=== PATIENT | female | born 1990 | race Caucasian/White ===

== ENCOUNTER 2025-08-09 12:21 | Outpatient (REF) | payer BC, SELFPAY ==
--- OUTSIDE RECORDS SUMMARY | 2025-08-09 14:58 | XMS_ITS | Clinical Summary ---
Author Organization [facility] Address [address] [place] [id number] Phone Care Team Providers Care Program Director Substance Abuse Name Role Phone Cyrus Loaiza Primary Care Provider [phone] Allergies No known active allergies Medications polyethylene glycol (MIRALAX) 17 gram packet Take 17 g by mouth daily. It is safe to increase this med from 1-4 times daily to assure that you have one soft bowel movement daily. 100 each 2 02/03/2019 Active psyllium (KONSYL) Pack Take 1 packet by mouth 2 (two) times a day. 60 packet 2 02/03/2019 Active Social History Tobacco Use Types Packs/Day Years Used Date Smoking Tobacco: Never Smokeless Tobacco: Never Alcohol Use Standard Drinks/Week Comments Yes 0 (1 standard drink = 0.6 oz pur e alcohol) once in a blue funez Education Answer Date Recorded Are you interested in more education? Not on franc e 03/07/2023 Are you concerned about learning? Not on file 03/07/2023 No 03/07/2023 No 03/07/2023 Digital Access Answer Date Recorded No 03/20/2023 No 03/20/2023 No 03/20/2023 Reliable internet access at home? Not on file 03/20/2023 Device with a working camera? Not on file Comments Unknown Sex and Gender Information Value Date Recorded Sex Assigned at Female 02/03/2019 6:37 PM EDT Legal Sex Female 6:49 PM EST Gender Identity Female 02/03/2019 6:37 PM EDT Sexual Orientation Straight 02/03/2019 6: 37 PM EDT Last Filed Vital Signs Vital Sign Reading Time Taken Comments Blood Pressure 118/72 02/03/2019 7:56 PM EDT Pulse 68 02/03/2019 7:56 PM EDT Temperature 36.7 C (98.1 F) 02/03/2019 7:56 PM EDT Respiratory Rate 16 02/03/2019 7:56 PM EDT Oxygen Saturation 100% 02/03/2019 7:56 PM EDT Inhaled Oxygen Concentration - - Weight 61.2 kg (135 lb) 02/03/2019 6:35 PM EDT Height 157.5 cm (5' 2 ) 02/03/2019 6:35 PM EDT Body Mass Index 24.69 02/03/2019 6:35 PM EDT Plan of Treatment Health Maintenance Due Date Last Done Comments Adult Td,Tdap Booster 1990 DEPRESSION SCREENING 2002 HEPATITIS C SCREENING 2008 HIV ONE-TIME SCREENING (18-6 5 YEARS) 2008 PAP SMEAR 2011 INFLUENZA VACCINE (#1) 2025 7, 09/01/2016 COVID-19 VACCINE (3 - 2024-2 6 season) 2025 07/22/2021, 06/24/2021 HEPATITIS A VACCINES Aged Out No long er eligible based on patient's age to complete this topic HIB VACCINES Aged Out No longer eligi ble based on patient's age to complete this topic MENINGOCOCCAL VACCINES (ACWY) Aged Out No longer eligible based on patient's age to complete this topic MENINGOCOCCAL VACCINES (B) Aged Out N o longer eligible based on patient's age to complete this topic PNEUMOCOCCAL VACCINES (0-49 years) Aged Out No longer eligible b ased on patient's age to complete this topic Medical Devices Not on file Care Teams Program Director Substance Abuse Relationship Specialty Start Date End Date Cyrus Loaiza DO PCP - General Internal Medicine 02/03/19 Additional Source Comments The information contained in this document represents components of the legal health record. It is not the complete legal health record.[facility]
--- OUTSIDE RECORDS SUMMARY | 2025-08-09 14:58 | XMS_ITS | Encounter Summary ---
Author Organization [facility] Address [address] [place] [phone] Phone Care Team Providers Care Core Shaper Top Name Role Phone Cyrus Loaiza DO Primary Care Provider [phone] Encounter Details Date Type Department Care Team (Latest Contact Info) Description 01/28/2021 Transcribe Orders Virtual Department [address] [place] [address] Shefali Gruber PA [address] [place] [address] [place] [address] Chest pain, unspecified type (Primary Dx) Social History Tobacco Use Types Packs/Day Years Used Date Smoking Tobacco: Never Smokeless Tobacco: Never Alcohol Use Standard Drinks/Week Comments Yes 0 (1 standard drink = 0.6 oz pur e alcohol) once in a blue funez Comments Unknown Sex and Gender Information Value Date Recorded Sex Assigned at Female 02/03/2019 6:37 PM EDT Legal Sex Female 6:49 PM EST Gender Identity Female 02/03/2019 6:37 PM EDT Sexual Orientation Straight 02/03/2019 6: 37 PM EDT documented as of this encounter Plan of Treatment Not on file documented as of this encounter Visit Diagnoses Diagnosis Chest pain, unspecified type- Primary documented in this encounter Care Teams Core Shaper Top Relationship Specialty Start Date End Date Cyrus Loaiza DO PCP - General Internal Medicine 02/03/19 documented as of this encounter Additional Source Comments The information contained in this document represents components of the legal health record. It is not the complete legal health record.[facility]
--- OUTSIDE RECORDS SUMMARY | 2025-08-09 14:58 | XMS_ITS | Encounter Summary ---
Author Organization [facility] Address [address] [place] [phone] Phone Care Team Providers Care Swing Driver Name Role Phone Cyrus Loaiza DO Unavailable Cyrus Loaiza DO Primary Care Provider Encounter Details Date Type Department Care Team (Latest Contact Info) Description 02/20/2019 Transcribe Orders [facility] [address] [place] [address] Shefali Billy, SPECIAL PROCEDURE TECHNOLOGIST [address] [place] [address] [email or web address] Rectal bleeding (Primary Dx); Constipation, unspecified constipation type; Bloating Social History Tobacco Use Types Packs/Day Years [...] on file documented as of this encounter Results * Comprehensive metabolic panel (02/20/2019 1:39 PM EDT) SODIUM 140 133 - 146 mmol/L [facility] POTASSIUM 4.1 3.3 - 5.1 mmol/L [facility] CHLORIDE 102 96 - 108 mmol/L [facility] CO2 27 21 - 35 mmol/L [facility] BUN 11 6 - 19 mg/dL [facility] CREATININE 0.80 0.5 - 1.5 mg/dL [facility] GLUCOSE 88 70 - 99 mg/dL [facility] ALBUMIN 4.8 3.9 - 4.8 g/dL [facility] TOTAL PROTEIN 8.0 6.5 - 8.0 g/dL [facility] CALCIUM 9.7 8.4 - 10.3 mg/dL [facility] ALKALINE PHOSPHATASE 50 39 - 117 U/L [facility] TOTAL BILIRUBIN 0.4 0.0 - 1.2 mg/dL [facility] AST 18 0 - 37 U/L [facility] ALT <5 0 - 40 U/L [facility] GLOBULIN 3.2 1 - 4.8 g/dL [facility] EGFR 100 >59 mL/min/1.7 3m2 [facility] Comment:If patient is black, multiply result by 1.159. Estimated glomerular filtration rate calculated using the CKD-EPI equation. ANION GAP 15 10 - 20 mmol/L [facility] Blood 02/20/2019 1:39 PM EDT 02/20/2019 1:43 PM EDT Shefali Billy [facility] BLOOD ORDERABLES Final Result Performing Organization Address City/State/[facility] Co de Phone Number [facility] [address] [place], [place] [phone] * (ABNORMAL) CBC (02/20/2019 1:39 PM EDT) WBC 6.24 3.40 - 11.20 K/uL [facility] RBC 4.74 3.80 - 4.80 M/uL [facility] HGB 12.4 12.0 - 15.0 g/dL [facility] HCT 39.6 36.0 - 46.0 % [facility] PLT 238 130 - 400 K/uL [facility] MCV 83.5 79.0 - 98.0 fL [facility] MCH 26.2(L) 27.0 - 34.8 pg [facility] MCHC 31.3(L) 31.5 - 36.0 g/dL [facility] RDW 14.9(H) 10.8 - 14.6 % [facility] MPV 10.5 9.4 - 12.4 fl [facility] NRBC 0.00 0.00 /100 WBCs [facility] ABSOLUTE NRBC 0.00 0.00 K/uL [facility] Blood 02/20/2019 1:39 PM EDT 02/20/2019 1:43 PM EDT Shefali Billy [facility] BLOOD ORDERABLES Final Result Performing Organization Address [facility]/ZIP Co de Phone Number [address] [address] * Immunoglobulin A (02/20/2019 1:39 PM EDT) IgA 208 70 - 400 mg/dL [facility] Blood 02/20/2019 1:39 PM EDT 02/20/2019 1:43 PM EDT [facility] BLOOD ORDERABLES Final Result Performing Organization Address [facility] Co de Phone Number [address] [address] * Tissue transglutaminase IgA (02/20/2019 1:39 PM EDT) TTG IGA ANTIBODY <1.2 <4.0 (Negative) U/mL [facility] Blood 02/20/2019 1:39 PM EDT 02/20/2019 1:43 PM EDT Shefalikourtney Beavers Wenceslao [facility] BLOOD ORDERABLES Final Result Performing Organization Address [facility] Co de Phone Number [facility] [address] [place] [address] documented in this encounter Visit Diagnoses Diagnosis Rectal bleeding- Primary Hemorrhage of rectum and anus Constipation, unspecified constipation type Bloating Flatulence, eructation, and gas pain documented in this encounter Care Teams Swing Driver Relationship Specialty Start Date End Date DeniceCyrus sylvester DO [address] [place] [address] [email or web address] PCP - General Internal Medicine 02/03/19 DeniceCyrus sylvesterDO [address] [place] [address] [email or web address] Insurance Assigned Provider 01/27/19 02/26/20 documented as of this encounter Additional Source Comments The information contained in this document represents components of the legal health record. It is not the complete legal health record.[facility]
[2025-08-09 18:43] LABS: Appearance Urine Turbid; Glucose Urine UA Negative (Negative); PH 5.5 (5.0-9.0); Specific Gravity - Urine 1.025 (1.005-1.025)
== END 2025-08-09 12:22 | disposition home or self-care (01) ==
LOC: HO.MANLDS 12:21
PROVIDERS: Visit Provider Physician Assistant
DX: R30.0 Dysuria (principal)
CPT/HCPCS: 81003

== ENCOUNTER 2025-09-04 14:12 | Outpatient (REF) | payer BC, SELFPAY ==
--- OUTSIDE RECORDS SUMMARY | 2025-09-04 17:29 | XMS_ITS | Data Portability ---
Author Organization [place] - [facility], Telehealth Patient Home Address [address] [place] [address] Assessment Encounter Date Assessment Date Assessment LastModified by Organization Details LastModified Time 01/20/2021 01/20/2021 [address] [place] [address] (EXECUTIVE SECRETARY) MDM MODERATE MUST MEET 2 OUT OF 3 ELEMENTS: PROBLEMS, DATA OR RISK ELEMENT 1: PROBLEMS ADDRESSED OR OR 1 UNDIAGNOSED NEW PROBLEM OR OR ELEMENT 2: DATA MUST MEET 1 OF 3 CATEGORIES CATEGORY 1: REVIEW OF PRIOR EXTERNAL NOTES, REVIEW OF RESULTS, ORDERING OF EACH TEST, ASSESSMENT REQUIRING INDEPENDENT HISTORIAN OR CATEGORY 2: OR CATEGORY 3: ELEMENT 3: RISK RISK OF COMPLICATIONS AND/OR MORBIDITY OR MORTALITY OF PATIENT MANAGEMENT PROVIDER MUST THOROUGHLY DOCUMENT EACH ELEMENT THAT IS COVERED [email or web address] Not available 01/20/2021 16:36:40 Plan of Treatment Reminders Order Date Submit Date Provider Last Modified By Organization Details Last Modified Time Details Appointments None recorded . Lab urinalys is complete , reflex culture 2024 025 EDY Not available 12:52:35 urinalys is, dipstick 2024 025 [email or web address] [facility], [address] [facility] [facility], [facility] [address], [place], [address], 11:56:35 Referral urogynec ologist referral 2024 025 [email or web address] [facility] Urogynecologist Scheduling Dept, [address] [place], [address], 12:04:[address] referral 2022 023 [email or web address] Norman Licona MD, [address] [place], [address], 3 15:20:34 gynecolo gist referral 2020 021 [email or web address] Derrick Renae DO, [address] [place], [address], 18:02:52 Procedures None recorded . Surgeries None recorded . Imaging CT, abdomen + pelvis, w/o contrast - Not Required Procedur e codes: 81623 Call Referenc e #: [id number] Resoluti on: Complete d on 08/13/20 25 at 03:13 pm. Call ref #[id number] 64. 2024 025 [email or web address] 110 [facility], [address] [place], [address], 5 09:40:11 US, pelvis, transabd ominal + transvag inal 2022 023 [email or web address] [facility], [address] [place], [address], 3 08:41:59 US, echocard iogram 2020 021 [email or web address] 110 Not available 09:35:42 exercise stress test 2020 021 [email or web address] 110 Not available 09:35:42 XR, chest, 2 view 2020 021 [email or web address] 110 Not available 09:35:42 Medication Orders nitrofur antoin monohydr ate/macr ocrystal s 100 mg capsule 2024 025 [facility]armacy #2024, [address] [place], [address], 5 05:00:58 Diflucan 150 mg tablet 2024 025 [facility]/Pharmacy #2025, [address] [place], [address], 5 12:03:14 atomoxet ine 40 mg capsule 2022 023 [facility], [address] [place], [address], 3 15:07:17 bupropio n HCl SR 100 mg tablet,1 2 hr sustaine d-releas e 2022 023 [facility] [address] [place], [address], 3 15:05:56 Keflex 500 mg capsule 2018 019 [id number], [address] [place], [place], [id number], 1 15:30:13 Patient TargetsNo targets recorded. Patient InstructionsNo instructions recorded. Reason for Referral Laundry Technician Referral for Us es oral contraception needs people manager for pap and control Referring Physician: Shefali Gruber, Internal Medicine, Encounter Date: 01/20/2021 Milk Runner Referral for Abdominal pain RLQ pain and LLQ pain; intermittent, possible colitis? US pelvic and transvag negative Referring Physician: Shefali Gruber, Internal Medicine, Encounter Date: 02/04/2023 Urogynecologist Referral for Dysuria recurrent UTI, yeast infection and BV with bladder pain Referring Physician: Shefali Gruber, Internal Medicine, Encounter Date: 08/09/2025 Results Created Date Observation Date Name Description Value Unit Range Abnormal Flag Note LastModifiedBy Organization Detail LastModifiedTime 08/09/2008/09/2025 urina lysis , dipst ick Leukocytes Modera te Not Available [facility] [address] [facility] [address], [place], [address], 08/09/2025 11:53:51 08/09/2008/09/2025 urina lysis , dipst ick Nitrite positi ve Not Available [facility] [address], [place], [address], 08/09/2025 11:53:51 08/09/2008/09/2025 urina lysis , dipst ick Urobilinogen 2 Not Available [facility] Internal [facility] [address], [place], [address], 08/09/2025 11:53:51 08/09/2008/09/2025 urina lysis , dipst ick Protein Trace Not Available [facility] [address], [place], [address], 08/09/2025 11:53:51 08/09/2008/09/2025 urina lysis , dipst ick pH 5.5 Not Available [address], [place], [address], 08/09/2025 11:53:51 08/09/2008/09/2025 urina lysis , dipst ick Blood Negati ve Not Available [facility] [address], [place], [address], 08/09/2025 11:53:51 08/09/2008/09/2025 urina lysis , dipst ick Specific Haskell 1.030 Not Available [facility] [address], [place], [address], 08/09/2025 11:53:51 08/09/2008/09/2025 urina lysis , dipst ick Ketone Small Not Available [facility] Internal [facility] [address], [place], [address], 08/09/2025 11:53:51 08/09/2008/09/2025 urina lysis , dipst ick Bilirubin Negati ve Not Available [facility] [address], [place], [address], 08/09/2025 11:53:51 08/09/2008/09/2025 urina lysis , dipst ick Glucose Negati ve Not Available [facility] [address], [place], [address], 08/09/2025 11:53:51 08/09/2008/09/2025 urina lysis , dipst ick Appearance Cloudy Not Available [facility] [address], [place], [address], 08/09/2025 11:53:51 08/09/2008/09/2025 urina lysis , dipst ick Color Dark Yellow Not Available [facility] [address], [place], [address], 08/09/2025 11:53:51 02/03/2002/01/2023 US, pelvi s, trans abdom inal + trans vagin al No observ ation record ed. [email or web address] [facility] [address] [facility], [place], [address], 02/04/2023 13:37:30 08/30/2008/29/2025 CT, abdom en + pelvi s, w/o contr ast No observ ation record ed. [email or web address] [facility] [address], [place], [address], 09/02/2025 14:07:41 Result Notes None recorded. Problems Name Problem SNOMED Code Status Onset Date Resolution Date Notes Provider Name and Address Organization Details Recorded Time Hemorrhoid s 41113521 Active 2018 Ciara coleman [place] - [facility] 9 11:43:41 History of exposure to lead 071246727 [facility] 9 11:43:51 Pain in pelvis 94706853 Active 2022 MODESTA COLLINS [address] [place] [address], [address], [facility] Internal [facility] 3 16:41:12 Adult attention deficit hyperactiv ity disorder 267906199 Active 2022 MODESTA COLLINS [address] [place] [address], [address], [facility] 3 16:49:24 Panic disorder 170985155 Active 2022 MODESTA COLLINS [address] [place] [address], [address], [facility] 3 16:49:31 Abdominal pain 66683110 Active 2022 MODESTA COLLINS [address] [place] [address], [address], [facility] 3 15:01:57 Acute urinary tract infection 945358048 Active 2024 MODESTA COLLINS [address] [place] [address], [address], [facility] 5 11:52:27 Candidiasi s of vagina 66402348 Active 2024 MODESTA COLLINS [address] [place] [address], [address], [facility] 5 11:53:43 Dysuria 67309765 Active 2024 MODESTA COLILNS [address] [place] [address], [address], [facility] 5 11:58:33 Problem Notes None recorded. Medical Equipment None Reported. Allergies Allergen ID Allergen Name Allergen Category Reaction Reaction Severity Criticality Documentation Date Start Date Code Code System Note Provider Name and Address Organization Details Recorded Time 6648 bupropion Not available Not available Not available Not available 02/04/2023 11590 RxNorm nause a and vomit ting MODESTA COLLINS [address] [place], [address], [facility] 3 15:07:37 Medications Name Sig Start Date Stop Date Status Note LastModified by Organization Details LastModified Time doxycycline hyclate 100 mg capsule TAKE 1 CAPSULE BY MOUTH TWICE A DAY FOR 7 DAYS 08/09 completed Not Available Not Available Not Available metronidazo le 0.75 % (37.5 mg/5 gram) vaginal gel APPLY VAGINALLY ONCE DAILY FOR 5 DAYS active Not Available Not Available No t Available Diflucan 150 mg tablet Take 1 tablet by oral route. 2024 active Not Available Not Available Not Avai lable ciprofloxac in 500 mg tablet TAKE 1 TABLET BY MOUTH EVERY DAY FOR 5 DAYS 08/09 completed Not Available Not Available Not Available bupropion HCl SR 100 mg tablet,12 hr sustained-r elease TAKE 1 TABLET BY MOUTH EVERY DAY FOR 30 DAYS active Not Available Not Available No t Available cephalexin 500 mg capsule TAKE 1 CAPSULE BY MOUTH TWICE A DAY FOR 5 DAYS 08/09 completed Not Available Not Available Not Available amoxicillin 875 mg-potassiu m clavulanate 125 mg tablet TAKE 1 TABLET BY MOUTH TWICE A DAY FOR 7 DAYS active Not Available Not Available No t Available atomoxetine 40 mg capsule Take 1 capsule every day by oral route for 14 days. active Not Available Not Available No t Available nitrofurant oin monohydrate /macrocryst als 100 mg capsule Take 1 capsule every 12 hours by oral route for 10 days. 08/26 completed Not Available Not Available Not Available Vitals Date Recorded Body weight Body mass index (BMI) Body height Oxygen saturation Oxygen saturation in Arterial blood by Pulse oximetry Heart rate Systolic And Diastolic Provider Name and Address Organization Details Last Updated DateTime 1 55903.9 3 g 25.2 kg/m2 158.75 cm 98 % 98 % 76 /min 120/80 mm[Hg] Yamini Serra [facility] 1 15:33:21 Date Recorded Body height Body mass index (BMI) Body weight Heart rate Oxygen saturation Oxygen saturation in Arterial blood by Pulse oximetry Systolic And Diastolic Provider Name and Address Organization Details Last Updated DateTime 3 157.48 cm 24.7 kg/m2 52871.9 7 g 72 /min 100 % 100 % 100/60 mm[Hg] [facility] 3 16:17:41 Date Recorded Body height Body mass index (BMI) Body weight Heart rate Oxygen saturation Oxygen saturation in Arterial blood by Pulse oximetry Systolic And Diastolic Provider Name and Address Organization Details Last Updated DateTime 3 157.48 cm 24.1 kg/m2 67119.1 9 g 90 /min 99 % 99 % 120/60 mm[Hg] [facility] 3 14:52:35 Date Recorded Body height Body mass index (BMI) Body weight Systolic And Diastolic Provider Name and Address Organization Details Last Updated DateTime 08/09/2025 157.48 cm 24.1 kg/m2 44951.19 g 110/68 mm[Hg] [facility] Internal [facility] 08/09/2025 11:26:56 Date Recorded Body height Body mass index (BMI) Body weight Heart rate Oxygen saturation Oxygen saturation in Arterial blood by Pulse oximetry Systolic And Diastolic Provider Name and Address Organization Details Last Updated DateTime 9 158.75 cm 24.8 kg/m2 47853.6 7 g 87 /min 99 % 99 % 110/70 mm[Hg] Ciara Morales [facility] Internal [facility] 9 16:21:40 Social History Question Answer Notes LastModified by Organizat ion Details LastModified Time Tobacco Smoking Status Never Smoker Not Available [facility] 03:36:23 What Was The Date Of Your Most Recent Tobacco Screening? 02/04/2023 [email or web address] Information not available 02/04/2023 Sex: Unknown Functional Status Question Answer Note LastModified by Organization D etails LastModified Time Do you or have you ever used any other forms of tobacco or nicotine? No [email or web address] Information not available 01/21/2023 Mental Status None recorded. Family History Nothing Reported. Medical History No medical history recorded. Gynecological HistoryNo gynecological history recorded. Obstetrics History GPAL:G 0 P 0 0 0 0 Immunizations Vaccine Type Date Status Note Provider Nam e and Address Organization Details Recorded Time TST-PPD intradermal 7 completed Ciaralubna coleman [facility] Internal [facility] 09/18/2019 11:44:53 varicella 8 completed Ciaralubna coleman [facility] Internal [facility] 09/18/2019 11:45:18 Td(adult) unspecified formulation 8 completed Ciaralubna Morales jared [facility] 09/18/2019 11:45:53 meningococcal MCV4, unspecified formulation 8 completed Ciara coleman [facility] Internal [facility] 09/18/2019 11:46:10 HPV, unspecified formulation 8 completed Ciaralubna Morales jared [facility] Internal [facility] 09/18/2019 11:46:28 Past Encounters Encounter ID Performer Location Encounter Start Date Encounter Closed Date Diagnosis/Indication Diagnosis SNOMED-CT Code Diagnosis ICD10 Code Diagnosis IMO Codes Diagnosis Note [id number] [facility] [address] [address] 09/18/2019 16:15:07 09/18/2019 16:43:41 Abscess [id number] L02.91 [id number] Cyrus Loaiza [facility] [address] [facility] [address] [address] 01/20/2021 15:25:35 01/20/2021 18:02:51 Atypical chest pain 957281539 R07.89 will fu with cardiac work up r/o Uses oral contraception 4885130 Z30.41 will send to people manager for Pap and oral contracept janna discussion [id number] Cyrus Loaiza [facility] [address] [facility] [address], [place] [address] 01/21/2023 16:04:28 01/24/2023 11:39:02 Pain in pelvis 95970958 R10.2 will set US pelvis + transabdom inal to r/o r/in ovarian cystspt agrees, sending to [facility] Adult atte ntion deficit hyperactivity disorder 788599024 F90.2 agreed to start with bupropiono pen to other alt meds if this is ineffectiv e Panic disorder 889422622 F41.0 discussed finding a therapist [id number] Cyrus Loaiza [facility] [address],[place] [address] 02/04/2023 14:39:10 02/08/2023 08:54:54 Pain in pelvis 55822066 R10.2 US is stable Abdominal pain 82922594 [facility]10.[facility] and wouldn't be able to pay for the Adult atte ntion deficit hyperactivity disorder 098128351 F90.2 will switch to atomoxetin e [id number] Cyrus Loaiza [facility] [address] [facility] [address],[place] [address] 08/09/2025 11:15:01 08/09/2025 12:04:54 Acute urinary tract infection 369455337 N39.0 947299 will set up with macrobid and also on dose of diflucan Candidiasis of vagina 72 250814 B37.31 018863 fu with uro people manager for assessment Dysuria 90258711 R30.0 34934 Health Concerns Section Related Observation LastModified by Organization Detai ls LastModified Time None Recorded Concern Status LastModified by Organization Details LastModified Time None Recorded Advance Directives Directive None Recorded Payers Insurance Date Sequence Insurance Name Policy Number Policy Reid Covered Member ID Reid Member ID Guarantor Name 08/09/2025 1 [facility] ([facility] [id number] Tanja C Rehbein [id number] Tanja C Rehbein 08/09/2025 1 [place] PR[place] 2023 - [facility] (MEDICAID) Tanja Rehbein [id number] Tanja C Rehbein 08/09/2025 1 [place] [id number] Tanja C Rehbein [id number] Tanja C Rehbein 08/09/2025 1 [place] [id number] Tanja C Rehbein [id number] Tanja C Rehbein Notes Date Note Type Note Provider Name a nd Address Organization Details Recorded Time 9 text/html ROS as noted in the HPI sore on right fifth medial toe x 1 month ago hardened initially, something fell off and and now just has pain dances for work, sx worse when feet are hot and sweaty 12 system ROS negative except where noted above- denies: chest pain, palpitations, sob, ankle swelling, visual problems, hearing problems, muscle aches or pains, numbness or tingling extremities, abdominal pain, bowel issues, bladder issues, sexual dysfunction, abnormal bleeding, sx of sinus/respiratory infection , headaches, dizziness/lightheaded ness, rashes, or nail changes. Trixie KhadarMARYBEL shahJOSE [address] [place], [address], [facility] 09/18/2019 16:42:04 1 text/html ROS as noted in the HPI c/o chest pain the patient reports that two weeks ago she developed severe chest pain two weeks ago states that she woke up in a sleep with sharp, right sided chest pain the patient reports at the time she was at her friends house denies new foods or alcohol ingestion at the time the patient states that she has intermittent chest pain for the past two weeks, varying in severity throughout the day nothing seems to be a correlated trigger per patient states she does drink a lot of coffee throughout the day, mostly on an empty stomach, though last week she cut out coffee and ate a very bland diet, states this did not help given symptoms, even though she had a normal EKG and she is a young healthy woman with no risk factors, still need to r/o cardiac etiology patient will continue on bland diet and trial an OTC antacid and see if improvement MODESTA COLLINS [address] [place], [address], [facility] 01/20/2021 16:36:55 3 text/html ROS as noted in the HPI c/o pain pelvis the patient reports that for the past year or so she has had pain after sex, bloating, cramps and intermittent pain the patient reports that she had significant pain recently with sexual intercourse for this entire past year the patient reports that she had a hx of ADHDdiscussed options for medication that may be affective MODESTA COLLINS [address] [place], [address], [facility] 01/21/2023 17:04:07 3 text/html ROS as noted in the HPI f/u US negative USno acute findingsall organs are wnl discussed symptomshas progressed to Right shooting to Left interrmitten abdominal pain discussed the ddx which includes colitis (whether infectious or autoimmune, constipation MODESTA COLLINS [address] [place], [address], [facility] 02/04/2023 15:16:49 5 text/html ROS as noted in the HPI c/o UTI recurrent UTI symptoms, UC said she had UTI, BV, yeast infectiontreated for all three without resolution of symptomsnoted that she doesn't know she has a UTI until symptoms get really bad, she doesn't present typically with the burning usually around her kidneys recommended uro people manager and CT scan MODESTA COLLINS [address] [place], [address], [facility] 08/09/2025 14:14:26 OBGyn Episode No OBEpisode recorded.
--- OUTSIDE RECORDS SUMMARY | 2025-09-04 17:29 | XMS_ITS | Clinical Summary ---
Author Organization [facility] Address [address] [place] [address] Phone Care Team Providers Care Surfacing Machine Operator Name Role Phone Cyrus Loaiza Primary Care Provider [phone] Allergies No known active allergies Medications polyethylene [...] Medical Devices Not on file Care Teams Surfacing Machine Operator Relationship Specialty Start Date End Date Cyrus Loaiza DO PCP - General Internal Medicine 02/03/19 Additional Source Comments The information contained in this document represents components of the legal health record. It is not the complete legal health record.[facility]
--- OUTSIDE RECORDS SUMMARY | 2025-09-04 17:29 | XMS_ITS | Encounter Summary ---
Author Organization [facility] Address [address] [place] [id number] Phone Care Team Providers Care Lifestyle Coordinator Name Role Phone Cyrus Loaiza DO Unavailable Cyrus Loaiza DO Primary Care Provider [phone] Encounter Details Date Type Department Care Team (Latest Contact Info) Description 02/20/2019 Transcribe Orders [facility] Phleb Gabriela [address] [facility] [address] [place] [address] Shefali Billy, MEDICAL CLERICAL ASSISTANT [address] [place] [address] Rectal bleeding (Primary Dx); Constipation, unspecified constipation [...] EDT) SODIUM 140 133 - 146 mmol/L [facility] POTASSIUM 4.1 3.3 - 5.1 mmol/L [facility] CHLORIDE 102 96 - 108 mmol/L [facility] CO2 27 21 - 35 mmol/L [facility] BUN 11 6 - 19 mg/dL [facility] CREATININE 0.80 0.5 - 1.5 mg/dL [facility] GLUCOSE 88 70 - 99 mg/dL [facility] ALBUMIN 4.8 3.9 - 4.8 g/dL [facility] TOTAL PROTEIN 8.0 6.5 - 8.0 g/dL [facility] CALCIUM 9.7 8.4 - 10.3 mg/dL [facility] ALKALINE PHOSPHATASE 50 39 - 117 U/L [facility] TOTAL BILIRUBIN 0.4 0.0 - 1.2 mg/dL [facility] AST 18 0 - 37 U/L [facility] ALT <5 0 - 40 U/L [facility] GLOBULIN 3.2 1 - 4.8 g/dL [facility] EGFR 100 >59 mL/min/1.7 3m2 [facility] Comment:If patient is black, multiply result by 1.159. Estimated glomerular filtration rate calculated using the CKD-EPI equation. ANION GAP 15 10 - 20 mmol/L [facility] Blood 02/20/2019 1:39 PM EDT 02/20/2019 1:43 PM EDT us Shefalikourtney Mejiasshravan Billy [facility] LAB BLOOD BKR ORDERABLES F inal Result [address] [address] * (ABNORMAL) CBC (02/20/2019 1:39 PM EDT) WBC 6.24 3.40 - 11.20 K/uL [facility] RBC 4.74 3.80 - 4.80 M/uL [facility] HGB 12.4 12.0 - 15.0 g/dL [facility] HCT 39.6 36.0 - 46.0 % [facility] PLT 238 130 - 400 K/uL [facility] MCV 83.5 79.0 - 98.0 fL [facility] MCH 26.2(L) 27.0 - 34.8 pg [facility] MCHC 31.3(L) 31.5 - 36.0 g/dL [facility] RDW 14.9(H) 10.8 - 14.6 % [facility] MPV 10.5 9.4 - 12.4 fl [facility] NRBC 0.00 0.00 /100 WBCs [facility] ABSOLUTE NRBC 0.00 0.00 K/uL [facility] Blood 02/20/2019 1:39 PM EDT 02/20/2019 1:43 PM EDT Shefali Beavers [facility] LAB BLOOD BKR ORDERABLES F inal Result Performing Organization Address [facility]/ZIP Co de Phone Number [address] [address] * Immunoglobulin A (02/20/2019 1:39 PM EDT) IgA 208 70 - 400 mg/dL [facility] Blood 02/20/2019 1:39 PM EDT 02/20/2019 1:43 PM EDT Shefali Ruthann [facility] LAB BLOOD BKR ORDERABLES F inal Result Performing Organization Address [facility] Co de Phone Number [address] [phone] * Tissue transglutaminase IgA (02/20/2019 1:39 PM EDT) TTG IGA ANTIBODY <1.2 <4.0 (Negative) U/mL [facility] Blood 02/20/2019 1:39 PM EDT 02/20/2019 1:43 PM EDT Shefali Billy [facility] LAB BLOOD BKR ORDERABLES F inal Result Performing Organization Address City/[facility]/ZIP Co de Phone Number [facility] [place] [address] documented in this encounter Visit Diagnoses Diagnosis Rectal bleeding- Primary Hemorrhage of rectum and anus Constipation, unspecified constipation type Bloating Flatulence, eructation, and gas pain documented in this encounter Care Teams Lifestyle Coordinator Relationship Specialty Start Date End Date Cyrus Loaiza DO [address] [place] [address] [email or web address] PCP - General Internal Medicine 02/03/19 Cyrus Loaiza DO [address] [place] [address] [email or web address] Insurance Assigned Provider 01/27/19 02/26/20 documented as of this encounter Additional Source Comments The information contained in this document represents components of the legal health record. It is not the complete legal health record.[facility]
--- OUTSIDE RECORDS SUMMARY | 2025-09-04 17:29 | XMS_ITS | Encounter Summary ---
Author Organization [facility] Address [address] [place] [address] Phone Care Team Providers Care Shop Hand Name Role Phone Cyrus Loaiza DO Primary Care Provider [phone] Encounter Details Date Type Department Care Team (Latest Contact Info) Description 01/28/2021 Transcribe Orders Virtual Department [address] [place] [address] Shefali Gruber PA [address] [place] [address] [place] [address] Chest pain, unspecified type (Primary Dx) Social [...] Primary documented in this encounter Care Teams Shop Hand Relationship Specialty Start Date End Date Cyrus Loaiza DO PCP - General Internal Medicine 02/03/19 documented as of this encounter Additional Source Comments The information contained in this document represents components of the legal health record. It is not the complete legal health record.[facility]
[2025-09-04 18:05] LABS: Appearance Urine Clear; Glucose Urine UA Negative (Negative); PH 5.5 (5.0-9.0); Specific Gravity - Urine 1.015 (1.005-1.025)
== END 2025-09-04 14:13 | disposition home or self-care (01) ==
LOC: HO.MANLDS 14:12
PROVIDERS: Visit Provider Physician Assistant
DX: R30.0 Dysuria (principal)
CPT/HCPCS: 81003